=== PATIENT | female | born 1980 | race Hispanic/Latino ===

== ENCOUNTER → 2019-04-18 | Day surgery (SDC) | payer OTHER ==
[~2019-04-18] MED LIST: FENTANYL CITRATE/PF 100MCG/2 ML INJ ONE; LISINOPRIL-HCT1 EACH PO; METOCLOPRAMIDE HCL 10 MG/2ML VIAL ONE; MIDAZOLAM HCL 2 MG/2 ML VIAL ONE; PROPOFOL IV EMULSION 10 MG/ML 50 ML VIAL ONE; ULTRAM 50MG50 MG PO
--- OUTSIDE RECORDS SUMMARY | 2019-04-18 10:59 | XMS REPORT ---
Author Author [facility] Address Unknown Phone Unavailable Care Team Providers Care Docket Specialist Name Role Phone Unavailable Unavailable Payers Payer Name Policy Type Policy Number Effective Date Expiration Date Problems This patient has no known problems. Allergies, Adverse Reactions, Alerts Allergy Name Allergy Type Status Severity Reaction(s) Onset Date Inactive Date Treating Clinician Comments No Known Allergies DA Active U 2011-07-21 00:00:00 Medications This patient has no known medications. Results Test Description Test Time Test Comments Text Results Atomic Results Result Comments B-TYPE NATRIURETIC PEPTIDE 2019-04-07 02:30:00 B-TYPE NATRIURETIC PEPTIDE (test code=BNP) 61.82 pgram/mL 0-100 - CTA [id number] 02:13:00 Name: MAGGIE SOTO [facility] : 1980 Age/S: 39 / F [address] [facility] Unit #: [id number] Loc: [place] [address] Phys: Mckayla Boyle MD Acct: [id number] Dis Date: Status: REG ER PHONE #: [phone] Exam Date: 04/07/2019 0145 FAX #: [phone] Reason: SOB, CHEST PAIN EXAMS: CPT CODE: [id number] CTA CHEST 29320 Dictation location: [facility]. CT CHEST ANGIOGRAM WITH IV CONTRAST; PE PROTOCOL WITH MIP RECONSTRUCTIONS HISTORY: SOB, CHEST PAIN COMPARISON: None. TECHNIQUE: Axial CT images of the chest were obtained with coronal and/or sagittal reformatted views with MIP and/or 3-D reconstruction of the pulmonary arteries. Automated exposure control, iterative reconstruction technique, and/or adjustment of mA and/or kV according to patient's size was utilized for radiation dose reduction. IV CONTRAST: 100 ml Isovue-370. FINDINGS: Visualized thyroid is unremarkable. The heart size is normal. No pericardial effusion. The thoracic aorta is normal in caliber. No evidence of a dissection. No definite filling defect in the pulmonary arteries to indicate a pulmonary embolism. No axillary, mediastinal or hilar adenopathy. The lungs are clear. No consolidation, pleural effusion or pneumothorax. No dominant pulmonary nodule. The adrenal glands are unremarkable. Small hiatal hernia. The bones are unremarkable. IMPRESSION: No evidence of a pulmonary embolism or aortic dissection. at 0213 Reported and signed by: Rex Spear M.D. PAGE 1 Signed Report (CONTINUED) Name: MAGGIE SOTO [facility] : 1980 Age/S: 39 / F [address] [facility] Unit #: [id number] Loc: [place] [address] Phys: Stevan Boyle MD Acct: [id number] Dis Date: Status: REG ER PHONE #: [phone] Exam Date: 04/07/2019 0145 FAX #: Reason: SOB, CHEST PAIN EXAMS: CPT CODE: [id number] CTA CHEST 98012 <Continued> CC: Mckayla Boyle MD Technologist:CESARIO LYNN CT CTDI: DLP: Trnscb Date/Time: 04/07/2019 (212) [email or web address] Orig Print D/T: S: 04/07/2019 (216) PAGE 2 Signed Report BASIC METABOLIC [id number] 01:49:00* Test Item Value Reference Range Comments SODIUM (test code=NA) 142 mmol/L 136-145 POTASSIUM (test code=K) 3.4 mmol/L 3.5-5.1 CHLORIDE (test code=CL) 109.0 mmol/L 98-107 CARBON DIOXIDE (test code=CO2) 24.0 mmol/L 21-32 ANION GAP (test code=GAP) 12.4 10-20 GLUCOSE (test code=GLU) 124 mg/dL 74-106 BLOOD UREA NITROGEN (test code=BUN) 18 mg/dL 7-18 GLOMERULAR FILTRATION RATE (test code=GFR) > 60 mL/min >=60 Estimated GFR by using Modified MDRD formula.Chronic kidney disease is defined as either kidney damageor GFR <60 mL/min/1.73 m2 for >3 months. CREATININE (test code=CREAT) 0.80 mg/dL 0.55-1.02 Note change in reference range due to change in reagent. BUN/CREATININE RATIO (test code=BUN/CREA) 22.5 10-20 CALCIUM (test code=CA) 8.7 mg/dL 8.5-10.1 HCG SERUM [id number] 01:49:00* Test Item Value Reference Range Comments HCG SERUM QUAL (test code=HCGQL) NEGATIVE NEGATIVE This HCGQL test is NOT applicable for MALE patients.Check with nurse about probable order error.If Tumor Marker Test needed, nurse should order test "HCGTU"(Test #550.73722) [id number] 01:49:00* Test Item Value Reference Range Comments TROPONIN-I (test code=TROPI) <0.015 ng/mL 0-0.045 [id number] 01:39:00* Test Item Value Reference Range Comments D-DIMER (test code=DDIMER) 222.00 ng/mLFEU 0-500 Clinical Cut-off value for D- Dimer is 500 ng/mL FEU. Comment: The [employer] D-Dimer assay is intended for use asan aid in the diagnosis of venous thromboembolism (VTE)[deep vein thrombosis (DVT) or pulmonary embolism (PE)].The measurement of D-Dimer should not be used as an aid inthe diagnosis of VTE, in patient with: -Therapeutic dose anticoagulant therapy for >24 hours -Fibrinolytic therapy within previous 7 days -Trauma or surgery within previous 4 weeks -Disseminated malignancies - Aortic aneurysm -Sepsis, severe infections, pneumonia, severe skin infections -Liver cirrhosis - BASIC METABOLIC [id number] 01:37:00* Test Item Value Reference Range Comments SODIUM (test code=NA) 142 mmol/L 136-145 POTASSIUM (test code=K) 3.4 mmol/L 3.5-5.1 CHLORIDE (test code=CL) 109.0 mmol/L 98-107 CARBON DIOXIDE (test code=CO2) mmol/L 21-32 ANION GAP (test code=GAP) 10-20 GLUCOSE (test code=GLU) mg/dL 74-106 BLOOD UREA NITROGEN (test code=BUN) mg/dL 7-18 GLOMERULAR FILTRATION RATE (test code=GFR) mL/min >=60 CREATININE (test code=CREAT) mg/dL 0.55-1.02 BUN/CREATININE RATIO (test code=BUN/CREA) 10-20 CALCIUM (test code=CA) mg/dL 8.5-10.1 HCG SERUM [id number] 01:37:00* Test Item Value Reference Range Comments HCG SERUM QUAL (test code=HCGQL) NEGATIVE NEGATIVE This HCGQL test is NOT applicable for MALE patients.Check with nurse about probable order error.If Tumor Marker Test needed, nurse should order test "HCGTU"(Test #550.88659) [id number] 01:37:00* Test Item Value Reference Range Comments TROPONIN-I (test code=TROPI) ng/mL 0-0.045 BASIC METABOLIC [id number] 01:36:00* Test Item Value Reference Range Comments SODIUM (test code=NA) 142 mmol/L 136-145 POTASSIUM (test code=K) 3.4 mmol/L 3.5-5.1 CHLORIDE (test code=CL) 109.0 mmol/L 98-107 CARBON DIOXIDE (test code=CO2) mmol/L 21-32 ANION GAP (test code=GAP) 10-20 GLUCOSE (test code=GLU) mg/dL 74-106 BLOOD UREA NITROGEN (test code=BUN) mg/dL 7-18 GLOMERULAR FILTRATION RATE (test code=GFR) mL/min >=60 CREATININE (test code=CREAT) mg/dL 0.55-1.02 BUN/CREATININE RATIO (test code=BUN/CREA) 10-20 CALCIUM (test code=CA) mg/dL 8.5-10.1 HCG SERUM [id number] 01:36:00* Test Item Value Reference Range Comments HCG SERUM QUAL (test code=HCGQL) NEGATIVE [id number] 01:36:00* Test Item Value Reference Range Comments TROPONIN-I (test code=TROPI) ng/mL 0-0.045 CBC W/O [id number] 01:24:00* Test Item Value Reference Range Comments WHITE BLOOD CELL (test code=WBC) 9.5 K/mm3 4.5-12.5 RED BLOOD CELL (test code=RBC) 4.25 mill/mm3 3.7-5.2 HEMOGLOBIN (test code=HGB) 11.3 gram/dL 11.5-15.5 HEMATOCRIT (test code=HCT) 35.0 % 36.0-46.0 MEAN CELL VOLUME (test code=MCV) 82.4 fL 80-98 MEAN CELL HGB (test code=MCH) 26.6 picogram 27.0-33.0 MEAN CELL HGB CONCETRATION (test code=MCHC) 32.3 gram/dL 33.0-36.0 RED CELL DISTRIBUTION WIDTH (test code=RDW) 13.0 % 11.6-16.2 PLATELET COUNT (test code=PLT) 342 K/mm3 150-450 MEAN PLATELET VOLUME (test code=MPV) 9.8 fL 6.7-11.0 - XR CHEST 1 [id number] 01:19:00 FAX: Mckayla Britton [phone] [place]: B St: REG Name: Mary ORIANACIPRIANOMAGGIE [facility] : [birth year] Age/S: 39/F [address] [facility] Unit #: [id number] Loc: [place] [address] Phys: Mckayla Boyle MD Acct: [id number] Dis Date: Status: REG ER PHONE #: [phone] Exam Date: 04/07/2019111 FAX #: [phone] Reason: Shortness of Breath EXAMS: CPT CODE: [id number] XR CHEST 1 V 60341 LOCATION: Q15 HISTORY: 39-year-old female who presents with dyspnea COMMENT: A frontal chest radiograph was obtained at the bedside at 1:07 a.m., and is compared to a prior study of February 11, 2019. The lungs are clear and well-aerated. The cardiac silhouette, kurt, and mediastinum are within normal limits. The skeleton is intact, and the surrounding soft tissues are unremarkable. IMPRESSION: Unremar kable portable examination of the chest. Electronically Si gned by French Morales M.D. on 04/07/2019 at 0119 Reported and signed by: French Morales M.D. CC: Mckayla Boyle MD Technologist: Marni Campuzano Trnscrd Jamie e/Time/By: 04/07/2019 (118) : By: [email or web address] Orig Print D/T: S: 2019 (012) PAGE 1 Signed Report HEPATIC FUNCTION [id number] 05:59:00* Test Item Value Reference Range Comments TOTAL PROTEIN (test code=PROT) 7.5 g/dL 6.4-8.2 ALBUMIN (test code=ALB) 3.80 g/dL 3.4-5.0 BILIRUBIN TOTAL (test code=BILT) 0.2 MG/DL <1.5 BILIRUBIN DIRECT (test code=BILD) < 0.10 MG/DL 0.0-0.30 BILIRUBIN INDIRECT (test code=BILIND) 0.10 MG/DL SGOT/AST (test code=AST) 24 IUnit/L 15-37 SGPT/ALT (test code=ALT) 26 IUnit/L 15-65 ALKALINE PHOSPHATASE TOTAL (test code=ALKP) 94 IUnit/L 20-125 TROPONIN-I [id number] 05:49:00* Test Item Value Reference Range Comments TROPONIN-I RAPID (test code=TROPIRAP) 0.02 ng/mL 0.00-0.08 Performed by certified fine grade operator at [facility] Negative: <=0.08 Positive: >=0.09An elevated troponin value alone is not sufficient todiagnose a myocardial infarction. Rather, the patient sclinical presentation (history, physical exam) and ECGshould be used in conjunction with troponin in thediagnostic evaluation of suspected myocardial infarction. Aserial sampling protocol is recommended to facilitate the identification of temporal changes in troponin levels characteristic of AR. CBC W/AUTO [id number] 05:45:00* Test Item Value Reference Range Comments WHITE BLOOD CELL (test code=WBC) 9.26 x10 3/uL 4.5-11.0 RED BLOOD CELL (test code=RBC) 4.23 x10 6/uL 3.54-5.02 HEMOGLOBIN (test code=HGB) 11.5 g/dL 11.0-15.0 HEMATOCRIT (test code=HCT) 35.3 % 33.0-45.0 MEAN CELL VOLUME (test code=MCV) 83.5 fL 81.0-99.0 MEAN CELL HGB (test code=MCH) 27.2 pg 27.0-33.0 MEAN CELL HGB CONCETRATION (test code=MCHC) 32.6 g/dL 33.0-37.0 RED CELL DISTRIBUTION WIDTH CV (test code=RDW) 13.0 % 11.5-14.5 RED CELL DISTRIBUTION WIDTH SD (test code=RDW-SD) 39.6 fL 37.0-54.0 PLATELET COUNT (test code=PLT) 302 x10 3/uL 150-400 MEAN PLATELET VOLUME (test code=MPV) 10.3 fL 7.0-9.0 NEUTROPHIL % (test code=NT%) 54.9 % 56.0-77.0 IMMATURE GRANULOCYTE % (test code=IG%) 0.3 % 0.0-2.0 LYMPHOCYTE % (test code=LY%) 33.9 % 14.0-32.0 MONOCYTE % (test code=MO%) 8.3 % 4.8-9.0 EOSINOPHIL % (test code=EO%) 1.7 % 0.3-3.7 BASOPHIL % (test code=BA%) 0.9 % 0.0-2.0 NUCLEATED RBC % (test code=NRBC%) 0.0 % 0-0 NEUTROPHIL # (test code=NT#) 5.08 x10 3/uL 2.0-7.6 IMMATURE GRANULOCYTE # (test code=IG#) 0.03 x10 3/uL 0.00-0.03 LYMPHOCYTE # (test code=LY#) 3.14 x10 3/uL 1.0-3.8 MONOCYTE # (test code=MO#) 0.77 x10 3/uL 0.1-0.8 EOSINOPHIL # (test code=EO#) 0.16 x10 3/uL 0.0-0.2 BASOPHIL # (test code=BA#) 0.08 x10 3/uL 0.0-0.2 NUCLEATED RBC # (test code=NRBC#) 0.00 x10 3/uL 0.0-0.1 MANUAL DIFF REQUIRED (test code=MDIFF) NO - XR CHEST 1 [id number] 05:45:00 FAX: Lavelle Salinas NP [phone] [place]: St: REG Name: Mary ALFAROMAGGIE [facility] : [birth year] Age/S: 39/F [address] [place] [address] Unit #: [id number] Loc: [place] [address] Phys: Lavelle Salinas NP Acct: [id number] Dis Date: Status: REG ER PHONE #: [phone] Exam Date: 02/11/2019 0543 FAX #: [phone] Reason: SOB EXAMS: CPT CODE: [id number] XR CHEST 1 V 11147 Chest, single view dated 02/11/2019. HISTORY: Shortness of breath. No prior studies are available for comparison. The heart is normal in size. The card iomediastinal shadow appears within normal limits. The lungs appear clear . The pulmonary vasculature is normal in caliber. No acute pleural space abnormalities are detected. IMPRESSION: 1. No ra diographic evidence of acute cardiopulmonary disease. SL: 131 at 0545 R eported and signed by: Tom Barriga M.D. CC: Avinash Salinas NP Technologist: Nicole Ramos RT(R)R Trnscrd Date/Time/By: 02/11/2019 (054 5) : By: Endy Orig Print D/T: S: 02/11/2019 (0549) PAGE 1 Signed Report CHEMISTRY 8 [id number] 05:43:00* Test Item Value Reference Range Comments ISTAT-SODIUM (test code=NAP) MMOL/L 134-147 ISTAT-POTASSIUM (test code=KP) MMOL/L 3.4-5.0 ISTAT-CHLORIDE (test code=CLP) MMOL/L 100-108 ISTAT CARBON DIOXIDE (test code=ISTAT-CO2) mmol/L 21-33 ISTAT CALCIUM IONIZED (test code=ISTAT-RENETTA) MG/DL 1.12-1.32 ISTAT-GLUCOSE (test code=GLUP) MG/DL 70-110 ISTAT-BUN (test code=BUNP) MG/DL 7-18 BEDSIDE CREATININE (test code=CREATBED) MG/DL 0.6-1.3 GLOMERULAR FILTRATION RATE POC (test code=GFRBED) 117 ML/MIN CHEMISTRY 8 [id number] 05:43:00* Test Item Value Reference Range Comments ISTAT-SODIUM (test code=NAP) 138 MMOL/L 134-147 ISTAT-POTASSIUM (test code=KP) 3.5 MMOL/L 3.4-5.0 ISTAT-CHLORIDE (test code=CLP) 107 MMOL/L 100-108 Performed by certified fine grade operator at [facility] ISTAT CARBON DIOXIDE (test code=ISTAT-CO2) 22.0 mmol/L 21-33 ISTAT CALCIUM IONIZED (test code=ISTAT-RENETTA) 1.10 MG/DL 1.12-1.32 ISTAT-GLUCOSE (test code=GLUP) 111 MG/DL 70-110 ISTAT-BUN (test code=BUNP) 20 MG/DL 7-18 BEDSIDE CREATININE (test code=CREATBED) 0.6 MG/DL 0.6-1.3 GLOMERULAR FILTRATION RATE POC (test code=GFRBED) 117 ML/MIN BREAST ULTRASOUND [id number] 10:21:13- BREAST ULTRASOUND RIGHTULTRASOUND OF RIGHT BREAST: 06/28/2018CLINICAL: Pain right breast. No prior exams were available for comparison. Color flow and real-time ultrasound of the right breast were performed. Dia scale images of the real-time examination were reviewed. Breast tissue has scattered fibroglandular background echotexture. Survey right breast ultrasound demonstrates no suspicious sonographic abnormality. No axillary lymphadenopathy was seen.IMPRESSION: NEGATIVE There is no sonographic evidence of malignancy. Resume annual screening mammography in one year. Clinical follow up is also recommended, and further management of clinical findings should be based on clinical examination.Alejandro Pena M.D. ss/:06/28/2018 10:21:13 Culture Manager: Connie BOOGIE, [facility]-FWletter sent: BIRADS 1-2 Normal Ultrasound BI-RADS: 1 Negative- US SOFT TISSUE [id number] 17:39:00 Name: MAGGIE SOTO [facility] : 1980 Age/S: 38 / F [address] [place] [address] Unit #: [id number] Loc: [place] [address] Phys: Bárbara Oliveira NP Acct: [id number] Dis Date: Status: PRE ER PHONE #: [phone] Exam Date: 06/24/2018 1719 FAX #: [phone] Reason: right upper, outer breast pain, warm to touch EXAMS: CPT CODE: [id number] US SOFT TISSUE TORSO 83104 PROCEDURE: NONVASCULAR SOFT TISSUE ULTRASOUND INDICATION: 38-year-old female with right breast pain, warmth for one week COMPARISON: None. TECHNIQUE: Sonographic evaluation of the right breast was performed using high resolution B-mode imaging, with supplemental Doppler imaging. Focused survey to region of concern as indicated by the patient outer right breast with scanning from 7 o'clock through 10 o'clock positions. Please note this does not constitute a screening survey of the breast. FINDINGS: No mass lesion, fluid collection or other sonographic abnormality demonstrated. IMPRESSION: Negative ultrasound. No abscess demonstrated. SL: [id number] at 1739 Reported and signed by: Kaushal Chris M.D. CC: Lavelle Stroud MD; Bárbara Oliveira NP Technologist: Dilip Caldera RDMS (AB) (OB) Trnscb Date/Time: 06/24/2018 (1735) Jairo Orig Print D/T: S: 06/24/2018 (0996) Probe: PAGE 1 Signed Report
[2019-04-18 15:14] VITALS: BP 108/71
--- NOTE | 2019-04-18 20:40 | Operative Report ---
DATE OF PROCEDURE: 04/18/2019 SURGEON: Vernon Husain MD PROCEDURE: EGD with biopsies. INDICATIONS FOR PROCEDURE: Heartburn, bloating. MEDICATIONS: The patient was done under MAC, please see anesthesiologist's note. PROCEDURE IN DETAIL: With the patient in the left lateral decubitus position, a flexible fiberoptic Olympus gastroscope was introduced into the esophagus under direct visualization without any difficulty. There was some patchy erythema noted in distal esophagus. The scope was then advanced with ease into the stomach traversing a small hiatal hernia. Mucosa overlying the antrum and the body revealed some patchy intense erythema and moderate edema, and biopsies were obtained and sent to stain for H. pylori. The pylorus was of normal contour and shape, was intubated with ease and the scope was advanced all the way to the second portion of the duodenum. The scope was then withdrawn slowly, mucosa overlying the proximal second portion and the duodenal bulb appeared to be within normal limits. Biopsies were obtained to rule out sprue. The scope was then withdrawn back into the stomach and retroflexed, mucosa overlying the fundus and the cardia appeared to be within normal limits. The scope was then straightened out, it was subsequently withdrawn, and the patient tolerated the procedure well. IMPRESSION: 1. Distal esophagitis. 2. Small hiatal hernia. 3. Gastritis, biopsied, biopsies sent to stain for Helicobacter pylori. 4. Rule out sprue. PLAN: Follow up histology. Initiate Protonix 40 mg 1 p.o. q.a.m. before meals. Vernon Husain MD [facility] /[id number] cc: Anthony Jacobs MD
== END | disposition home or self-care (01) ==
LOC: OR 10:56
PROVIDERS: ATTEND Internal Medicine Gastroenterology
DX: K20.9 Esophagitis, unspecified (principal); K29.70 Gastritis, unspecified, without bleeding; K29.80 Duodenitis without bleeding; K44.9 Diaphragmatic hernia without obstruction or gangrene; B96.81 Helicobacter pylori [H. pylori] as the cause of diseases classified elsewhere; I10 Essential (primary) hypertension; Z68.30 Body mass index [BMI] 30.0-30.9, adult
CPT/HCPCS: 43239; 81025; J2250; J2704; J2765; J3010

== ENCOUNTER 2019-04-22 18:11 | Emergency (ER) | payer MEDICARE ==
[~2019-04-22] VITALS: Ht 160 cm; Wt 67.1 kg
[~2019-04-22 18:11] MED LIST changes: -FENTANYL CITRATE/PF 100MCG/2 ML INJ ONE; -METOCLOPRAMIDE HCL 10 MG/2ML VIAL ONE; -MIDAZOLAM HCL 2 MG/2 ML VIAL ONE; -PROPOFOL IV EMULSION 10 MG/ML 50 ML VIAL ONE
[2019-04-22 18:38] LABS: BASOPHILS # (AUTO) 0.1 (0.0-0.1); BASOPHILS % 0.6 % (0.0-1.0); EOSINOPHILS # (AUTO) 0.1 (0.0-0.4); EOSINOPHILS % 0.9 % (0.0-6.0); HEMATOCRIT 38.8 % (34.2-44.1); LYMPHOCYTES # (AUTO) 2.8 (1.0-3.2); MEAN CORPUSCULAR HEMOGLOBIN 27.4 pg (28-32); MEAN CORPUSCULAR HGB CONC 33.5 g/dL (31-35); MEAN CORPUSCULAR VOLUME 81.9 fL (81-99); MONOCYTES # (AUTO) 0.6 (0.2-0.8); MONOCYTES % 5.7 % (4.4-11.3); NEUTROPHILS # (AUTO) 6.9 (2.1-6.9); NEUTROPHILS % 65.5 % (38.7-80.0); PLATELET COUNT 375 x10e3/uL (140-360); RED BLOOD COUNT 4.74 x10e6/uL (3.6-5.1); RED CELL DISTRIBUTION WIDTH 12.1 % (11.7-14.4)
[2019-04-22 18:49] LABS: INR 1.01; PROTHROMBIN TIME 13.9 seconds (11.9-14.5)
[2019-04-22 18:53] LABS: ALANINE AMINOTRANSFERASE 14 IU/L (0-55); ALBUMIN 4.3 g/dL (3.5-5.0); ALBUMIN/GLOBULIN RATIO 1.2 (0.8-2.0); ALKALINE PHOSPHATASE 101 IU/L (40-150); ANION GAP 15.4 mmol/L (8-16); BLOOD UREA NITROGEN 18 mg/dL (7-26); BUN/CREATININE RATIO 19 (6-25); CARBON DIOXIDE 25 mmol/L (22-29); CHLORIDE 102 mmol/L (98-107); COLOR,URINE YELLOW (YELLOW); CREATINE KINASE 73 IU/L (29-168); CREATININE, SERUM 0.94 mg/dL (0.57-1.11); EST GLOMERULAR FILTRATION RATE > 60 ML/MIN (60-); GLUCOSE 139 mg/dL (74-118); POTASSIUM 3.4 mmol/L (3.5-5.1); SODIUM 139 mmol/L (136-145)
[2019-04-22 18:54] LABS: BILIRUBIN,URINE NEGATIVE (NEGATIVE); CLARITY,URINE CLEAR (CLEAR); KETONES,URINE NEGATIVE (NEGATIVE); LEUKOCYTE ESTERASE ,URINE NEGATIVE (NEGATIVE); NITRITE,URINE NEGATIVE (NEGATIVE); PROTEIN,URINE DIPSTICK NEGATIVE (NEGATIVE); URINE UROBILINOGEN 0.2 mg/dL (0.2 - 1)
[2019-04-22 19:02] LABS: WBC,URINE (MAN) 0-5 /HPF (0-5)
[2019-04-22 19:03] LABS: BACTERIA,URINE FEW /HPF; EPITHELIAL CELLS,URINE MODERATE /LPF; RBC,URINE 0-5 /HPF (0-5)
--- NOTE | 2019-04-22 19:04 | Diagnostic Imaging Report ---
EXAM: CHEST SINGLE (NOT PORTABLE) DATE: 04/22/2019 6:24 PM INDICATION: Chest pain, shortness of breath ^ERMD ORDER ^[id number] ^1840 ^Y COMPARISON: None FINDINGS: Lines and tubes: None Heart size normal. No focal pulmonary opacity, pleural effusion or pneumothorax. Upper abdomen unremarkable. No acute bony abnormality. IMPRESSION: No evidence for acute disease. Signed by: Dr. Chung Underwood M.D. on 04/22/2019 7:01 PM
[2019-04-22 19:37] VITALS: BP 117/72
== END 2019-04-22 19:30 | disposition home or self-care (01) ==
LOC: ER 18:11
DX: R07.89 Other chest pain (principal); I10 Essential (primary) hypertension
CPT/HCPCS: 36415; 71045; 80053; 81001; 82550; 82553; 84484; 85025; 85610; 85730; 93005; 99283

== ENCOUNTER 2019-04-28 18:34 | Emergency (ER) | payer SELFPAY ==
--- NOTE | 2019-04-28 19:26 | NUR ---
NO ANSWER FOR TRIAGE AT THIS TIME; PATIENT NOT IN LOBBY OR RESTROOM
== END 2019-04-28 22:24 | disposition left against medical advice (07) ==
LOC: ER 18:34
DX: Z04.1 Encounter for examination and observation following transport accident (principal)

== ENCOUNTER 2019-04-29 20:53 | Emergency (ER) | payer MEDICARE, OTHER ==
[~2019-04-29] VITALS: Ht 160 cm; Wt 67.1 kg
[2019-04-29] MEDS ORDERED: KETOROLAC TROMETHAMINE 60 MG/2 ML VIAL IM ONE (21:45)
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
== END 2019-04-29 23:32 | disposition home or self-care (01) ==
LOC: ER 20:53
DX: S20.219A Contusion of unspecified front wall of thorax, initial encounter (principal); M54.2 Cervicalgia; V43.52XA Car driver injured in collision with other type car in traffic accident, initial encounter; Y92.488 Other paved roadways as the place of occurrence of the external cause; I10 Essential (primary) hypertension
CPT/HCPCS: 71046; 93005; 99283

== ENCOUNTER 2019-05-10 07:09 | Emergency (ER) | payer MEDICARE, OTHER ==
[~2019-05-10] VITALS: Ht 160 cm; Wt 67.1 kg
--- NOTE | 2019-05-10 07:25 | NUR ---
DR. BAUER IN TRIAGE FOR INITIAL EVAL.
[2019-05-10 07:46] VITALS: BP 122/96
[2019-05-10] MEDS ORDERED: LIDOCAINE 4% PATCH TP ONE (09:00)
== END 2019-05-10 08:07 | disposition home or self-care (01) ==
LOC: ER 07:09
DX: M54.6 Pain in thoracic spine (principal); M54.5 Low back pain; G89.29 Other chronic pain
CPT/HCPCS: 93005; 99283

== ENCOUNTER 2022-07-11 21:42 | Emergency (ER) | payer OTHER ==
[~2022-07-11] VITALS: Ht 160 cm; Wt 67.1 kg
[2022-07-11 22:09] VITALS: BP 156/94; PULSE 98; RESP 16; TEMP 98.2; O2SAT 100
== END 2022-07-11 22:08 | disposition home or self-care (01) ==
LOC: ER 21:58
DX: F41.9 Anxiety disorder, unspecified (principal); F12.90 Cannabis use, unspecified, uncomplicated; I10 Essential (primary) hypertension; M54.9 Dorsalgia, unspecified; G89.29 Other chronic pain
CPT/HCPCS: 99282

== ENCOUNTER 2024-08-18 22:51 | Emergency (ER) | payer OTHER ==
[~2024-08-18] VITALS: Ht 152.4 cm; Wt 63.0 kg
[2024-08-18 22:57] VITALS: PULSE 82; RESP 19; TEMP 98
[2024-08-18] MEDS ORDERED: PREDNISONE20 MG PO (23:48)
[2024-08-18] MEDS ORDERED: VENTOLIN HFA18 GM INH (23:48)
[2024-08-18] MEDS ORDERED: AZITHROMYCIN250 MG PO (23:48)
[2024-08-18 23:50] VITALS: BP 143/80; PULSE 82; RESP 19; TEMP 98; O2SAT 99
== END 2024-08-18 23:56 | disposition home or self-care (01) ==
LOC: FSED 22:58
DX: R06.02 Shortness of breath (principal); J06.9 Acute upper respiratory infection, unspecified; R05.9 Cough, unspecified; I10 Essential (primary) hypertension; Z11.52 Encounter for screening for COVID-19
CPT/HCPCS: 0223U; 83518 ×2; 87400; 99283

== ENCOUNTER 2024-11-17 20:01 | Emergency (ER) | payer OTHER ==
[~2024-11-17 20:01] MED LIST changes: +AZITHROMYCIN250 MG PO; +PREDNISONE20 MG PO; +VENTOLIN HFA18 GM INH
== END 2024-11-17 20:30 | disposition short-term general hospital (02) ==
LOC: FSED 20:25
DX: R42 Dizziness and giddiness (principal)